=== PATIENT | male | born 1960 | race Caucasian/White ===

== ENCOUNTER 2020-01-30 13:56 | Inpatient (IN) ==
[2020-01-30] MEDS ORDERED: ONDANSETRON 4 MG/2 ML VIAL IV PRN (14:11)
[2020-01-30 15:59] LABS: Basophils # 0.1 10*3/uL (0.0-0.2); Basophils % 0.3 % (0.0-0.8); Immature Granulocytes % 5.5 %; Immature Granulocytes Absolute 1.29 #; Lymphocytes # 0.7 10*3/uL (1.4-4.0); Mean Corpuscular HGB Conc 33.3 GM/DL (32-36); Mean Corpuscular Volume 97.3 FL (87-102); Monocytes % 5.7 % (1.7-12.7); Neutrophils % 85.5 % (38.7-73.9); Platelet Count 263 T/CUMM (130-400); Red Blood Count 4.01 MC/CUMM (3.8-5.5); Red Cell Distribution Width 13.4 % (9.3-17.3); White Blood Count 23.4 T/CUMM (4-12)
[2020-01-30 16:23] LABS: Albumin 2.5 G/DL (3.4-5.0); Bilirubin,Total 0.4 MG/DL (0.2-1.0); Calcium 9.2 MG/DL (8.5-10.1); Osmolality,Calculated 277.2 MOS/KG (273-304); Total Protein 7.1 G/DL (6.4-8.3)
[2020-01-30 16:24] LABS: Band Neutrophils 2 % (0-10); Hypochromasia Slight; Lymphocytes 6 % (20-55); Platelet Estimate Adequate; Segmented Neutrophils 89 % (50-85); Total Cells Counted 100
[2020-01-30] MEDS ORDERED: SODIUM CHLORIDE 0.9% 1,000 ML IV ONE (17:09)
[2020-01-30] MEDS ORDERED: VANCOMYCIN INJ 1,500 MG in SODIUM CHLORIDE 0.9% 500 ML IV ONE (17:30)
[2020-01-30] MEDS ORDERED: VANCOMYCIN INJ 1,750 MG in SODIUM CHLORIDE 0.9% 500 ML IV SCH (18:00)
[2020-01-30] MEDS: SODIUM CHLORIDE 0.9% 1,000 ML IV SCH (18:24)
[2020-01-30] MEDS: ACETAMINOPHEN 325 MG TABLET PO PRN (18:24)
[2020-01-30] MEDS ORDERED: DEXTROSE 50% 25 GM/50 ML VIAL IV PRN (18:30)
[2020-01-30] MEDS ORDERED: GLUCAGON 1 MG VIAL IM PRN (18:30)
[2020-01-30] MEDS: METOPROLOL SUCCINATE XL 50 MG TABLET PO SCH (21:51)
[2020-01-30] MEDS: PIPERACILLIN/TAZOBACTAM 3,375 MG in SODIUM CHLORIDE 0.9% 100 ML IV SCH (21:51)
[2020-01-31] MEDS: ACETAMINOPHEN 325 MG TABLET PO PRN ×2 (00:35→16:35)
[2020-01-31] MEDS: SODIUM CHLORIDE 0.9% 1,000 ML IV SCH ×3 (03:00→17:27)
[2020-01-31 03:50] LABS: Bilirubin,Urine Negative (Negative); Blood, Urine Negative (Negative); Glucose,Urine (UA) Negative (Negative); Ketones,Urine Negative (Negative); Nitrite,Urine Negative (Negative); Protein,Urine Negative; RBC,Urine 1 /HPF (0-4); Urine Appearance CLEAR (Clear); Urine Color Yellow (Yellow); Urine Specific Gravity 1.028 (1.001-1.035); Urine Urobilinogen < 2.0 EU/DL (0.2-1.0); WBC,Urine <1 /HPF (0-6)
[2020-01-31 05:52] LABS: Basophils # 0.1 10*3/uL (0.0-0.2); Basophils % 0.3 % (0.0-0.8); Eosinophils % 0.1 % (0.00-10.9); Hematocrit 34.6 VOL% (42.0-52.0); Hemoglobin 11.6 GM/DL (14.0-18.0); Immature Granulocytes % 1.5 %; Immature Granulocytes Absolute 0.28 #; Lymphocytes # 1.2 10*3/uL (1.4-4.0); Lymphocytes % 6.2 % (21.2-54.2); Mean Corpuscular HGB Conc 33.5 GM/DL (32-36); Mean Corpuscular Volume 95.8 FL (87-102); Mean Platelet Volume 9.1 FL (9.6-12.0); Monocytes % 5.8 % (1.7-12.7); Neutrophils % 86.1 % (38.7-73.9); Platelet Count 248 T/CUMM (130-400); Red Blood Count 3.61 MC/CUMM (3.8-5.5); Red Cell Distribution Width 13.5 % (9.3-17.3)
[2020-01-31 06:15] LABS: Albumin 2.1 G/DL (3.4-5.0); Bilirubin,Total 1.4 MG/DL (0.2-1.0); Calcium 8.2 MG/DL (8.5-10.1); Osmolality,Calculated 274.1 MOS/KG (273-304); Total Protein 6.1 G/DL (6.4-8.3)
[2020-01-31 06:23] LABS: Band Neutrophils 2 % (0-10); Lymphocytes 10 % (20-55); Platelet Estimate Adequate; Segmented Neutrophils 84 % (50-85); Total Cells Counted 100
[2020-01-31] MEDS: PIPERACILLIN/TAZOBACTAM 3,375 MG in SODIUM CHLORIDE 0.9% 100 ML IV SCH ×3 (06:40→21:11)
[2020-01-31] MEDS ORDERED: BUPIVACAINE MPF 0.25% 30 ML VIAL ONE (06:41)
[2020-01-31] MEDS ORDERED: MIDAZOLAM 2 MG/2 ML VIAL ONE (06:42)
[2020-01-31] MEDS ORDERED: LIDOCAINE 1%/EPI INJ 20 ML VIAL ONE (06:42)
[2020-01-31] MEDS ORDERED: fentaNYL 100 MCG/2 ML VIAL ONE (06:42)
[2020-01-31] MEDS ORDERED: propofoL 200 MG/20 ML VIAL IV ONE (06:45)
[2020-01-31] MEDS ORDERED: ROCURONIUM 50 MG/5 ML VIAL IV ONE (06:45)
[2020-01-31] MEDS ORDERED: LIDOCAINE 2% 5 ML VIAL ONE (06:45)
[2020-01-31] MEDS ORDERED: ONDANSETRON 4 MG/2 ML VIAL ONE (06:48)
[2020-01-31] MEDS ORDERED: PHENYLEPHRINE 1 MG/10 ML SYRINGE IV ONE (07:38)
[2020-01-31] MEDS ORDERED: SUGAMMADEX 200 MG/2 ML VIAL IV ONE (07:44)
[2020-01-31] MEDS ORDERED: DESFLURANE 1 UNIT/15 MINUTE INH ONE (08:36)
[2020-01-31] MEDS: AMIODARONE 200 MG TABLET PO SCH (08:38)
[2020-01-31] MEDS: PANTOPRAZOLE 40 MG VIAL IV SCH (08:38)
[2020-01-31] MEDS: METOPROLOL SUCCINATE XL 50 MG TABLET PO SCH ×2 (09:01→21:11)
[2020-01-31] MEDS: VANCOMYCIN INJ 1,750 MG in SODIUM CHLORIDE 0.9% 500 ML IV SCH (12:16)
[2020-01-31] MEDS: DIGOXIN 0.125 MG TABLET PO SCH (12:18)
[2020-01-31] MEDS: HYDROmorphone 2 MG/1 ML VIAL IV PRN (15:49)
[2020-02-01] MEDS: VANCOMYCIN INJ 1,750 MG in SODIUM CHLORIDE 0.9% 500 ML IV SCH ×2 (01:24→12:39)
[2020-02-01] MEDS: SODIUM CHLORIDE 0.9% 1,000 ML IV SCH ×4 (01:27→23:48)
[2020-02-01] MEDS: PIPERACILLIN/TAZOBACTAM 3,375 MG in SODIUM CHLORIDE 0.9% 100 ML IV SCH ×3 (06:00→22:25)
[2020-02-01 06:25] LABS: Basophils % 0.2 % (0.0-0.8); Eosinophils # 0.1 10*3/uL (0.0-0.87); Eosinophils % 0.8 % (0.00-10.9); Hematocrit 31.9 VOL% (42.0-52.0); Hemoglobin 10.6 GM/DL (14.0-18.0); Immature Granulocytes % 1.6 %; Immature Granulocytes Absolute 0.29 #; Lymphocytes # 1.4 10*3/uL (1.4-4.0); Lymphocytes % 7.9 % (21.2-54.2); Mean Corpuscular HGB Conc 33.2 GM/DL (32-36); Mean Corpuscular Volume 96.4 FL (87-102); Mean Platelet Volume 8.8 FL (9.6-12.0); Neutrophils % 85.5 % (38.7-73.9); Platelet Count 247 T/CUMM (130-400); Red Blood Count 3.31 MC/CUMM (3.8-5.5); Red Cell Distribution Width 13.8 % (9.3-17.3); White Blood Count 18.3 T/CUMM (4-12)
[2020-02-01 06:51] LABS: Calcium 8.2 MG/DL (8.5-10.1); Osmolality,Calculated 271.1 MOS/KG (273-304)
[2020-02-01 06:57] LABS: Band Neutrophils 1 % (0-10); Hypochromasia 1+; Lymphocytes 9 % (20-55); Microcytosis 1+; Platelet Estimate Adequate; Segmented Neutrophils 82 % (50-85); Total Cells Counted 100
[2020-02-01] MEDS ORDERED: LIDOCAINE 1%/EPI INJ 20 ML VIAL ONE (08:29)
[2020-02-01] MEDS ORDERED: BUPIVACAINE MPF 0.25% 30 ML VIAL ONE (08:29)
[2020-02-01] MEDS ORDERED: propofoL 200 MG/20 ML VIAL IV ONE (08:48)
[2020-02-01] MEDS ORDERED: fentaNYL 100 MCG/2 ML VIAL ONE (08:48)
[2020-02-01] MEDS ORDERED: MIDAZOLAM 2 MG/2 ML VIAL ONE (08:48)
[2020-02-01] MEDS ORDERED: LIDOCAINE 2% 5 ML VIAL ONE (08:48)
[2020-02-01] MEDS: METOPROLOL SUCCINATE XL 50 MG TABLET PO SCH ×2 (09:44→22:24)
[2020-02-01] MEDS: AMIODARONE 200 MG TABLET PO SCH (09:44)
[2020-02-01] MEDS: PANTOPRAZOLE 40 MG VIAL IV SCH (09:44)
[2020-02-01] MEDS: HYDROmorphone 2 MG/1 ML VIAL IV PRN (12:40)
[2020-02-01] MEDS: DIGOXIN 0.125 MG TABLET PO SCH (13:20)
[2020-02-02] MEDS: VANCOMYCIN INJ 1,750 MG in SODIUM CHLORIDE 0.9% 500 ML IV SCH ×2 (00:33→11:38)
[2020-02-02] MEDS: SODIUM CHLORIDE 0.9% 1,000 ML IV SCH ×3 (05:36→20:49)
[2020-02-02] MEDS: PIPERACILLIN/TAZOBACTAM 3,375 MG in SODIUM CHLORIDE 0.9% 100 ML IV SCH ×3 (06:10→22:17)
[2020-02-02] MEDS: AMIODARONE 200 MG TABLET PO SCH (08:47)
[2020-02-02] MEDS: METOPROLOL SUCCINATE XL 50 MG TABLET PO SCH ×2 (08:47→21:31)
[2020-02-02] MEDS: PANTOPRAZOLE 40 MG VIAL IV SCH (08:48)
[2020-02-02] MEDS: HYDROmorphone 2 MG/1 ML VIAL IV PRN ×3 (08:56→21:40)
[2020-02-02] MEDS: SODIUM HYPOCHLORITE 0.25% IRRIG 473 ML BOTTLE TOP SCH (09:45)
[2020-02-02] MEDS: DIGOXIN 0.125 MG TABLET PO SCH (13:36)
[2020-02-03] MEDS: SODIUM CHLORIDE 0.9% 1,000 ML IV SCH ×4 (00:50→19:42)
[2020-02-03] MEDS: VANCOMYCIN INJ 1,750 MG in SODIUM CHLORIDE 0.9% 500 ML IV SCH ×2 (00:50→11:26)
[2020-02-03 05:53] LABS: Basophils # 0.1 10*3/uL (0.0-0.2); Basophils % 0.4 % (0.0-0.8); Eosinophils # 0.4 10*3/uL (0.0-0.87); Eosinophils % 3.1 % (0.00-10.9); Hematocrit 31.1 VOL% (42.0-52.0); Hemoglobin 10.2 GM/DL (14.0-18.0); Immature Granulocytes % 4.2 %; Immature Granulocytes Absolute 0.49 #; Lymphocytes # 1.5 10*3/uL (1.4-4.0); Lymphocytes % 12.7 % (21.2-54.2); Mean Corpuscular HGB Conc 32.8 GM/DL (32-36); Mean Corpuscular Volume 96.9 FL (87-102); Mean Platelet Volume 8.6 FL (9.6-12.0); Monocytes % 5.3 % (1.7-12.7); Neutrophils % 74.3 % (38.7-73.9); Platelet Count 275 T/CUMM (130-400); Red Blood Count 3.21 MC/CUMM (3.8-5.5); Red Cell Distribution Width 13.4 % (9.3-17.3); White Blood Count 11.7 T/CUMM (4-12)
[2020-02-03 05:58] LABS: Calcium 8.2 MG/DL (8.5-10.1); Osmolality,Calculated 275.5 MOS/KG (273-304)
[2020-02-03] MEDS: PIPERACILLIN/TAZOBACTAM 3,375 MG in SODIUM CHLORIDE 0.9% 100 ML IV SCH ×3 (06:31→21:28)
[2020-02-03] MEDS: FUROSEMIDE 20 MG TABLET PO SCH (08:58)
[2020-02-03] MEDS: AMIODARONE 200 MG TABLET PO SCH (08:58)
[2020-02-03] MEDS: ATORVASTATIN 20 MG TABLET PO SCH (08:58)
[2020-02-03] MEDS: METOPROLOL SUCCINATE XL 50 MG TABLET PO SCH ×2 (08:58→21:27)
[2020-02-03] MEDS: PANTOPRAZOLE 40 MG VIAL IV SCH (08:59)
[2020-02-03] MEDS: SODIUM HYPOCHLORITE 0.25% IRRIG 473 ML BOTTLE TOP SCH (08:59)
[2020-02-03] MEDS ORDERED: BUPIVACAINE MPF 0.25% 30 ML VIAL ONE (10:46)
[2020-02-03] MEDS ORDERED: LIDOCAINE 1%/EPI INJ 20 ML VIAL ONE (10:46)
[2020-02-03] MEDS: DIGOXIN 0.125 MG TABLET PO SCH (13:25)
[2020-02-03] MEDS ORDERED: propofoL 200 MG/20 ML VIAL IV ONE (15:07)
[2020-02-03] MEDS ORDERED: LIDOCAINE 2% 5 ML VIAL ONE (15:07)
[2020-02-03] MEDS ORDERED: MIDAZOLAM 2 MG/2 ML VIAL ONE (15:07)
[2020-02-03] MEDS ORDERED: fentaNYL 100 MCG/2 ML VIAL ONE (15:07)
[2020-02-03] MEDS ORDERED: PHENYLEPHRINE 10 MG/1 ML VIAL IV ONE (16:31)
[2020-02-03] MEDS ORDERED: ONDANSETRON 4 MG/2 ML VIAL ONE (18:10)
[2020-02-03] MEDS: HYDROmorphone 2 MG/1 ML VIAL IV PRN (19:53)
[2020-02-04] MEDS: SODIUM CHLORIDE 0.9% 1,000 ML IV SCH (01:01)
[2020-02-04] MEDS: VANCOMYCIN INJ 1,750 MG in SODIUM CHLORIDE 0.9% 500 ML IV SCH (01:35)
[2020-02-04] MEDS: PIPERACILLIN/TAZOBACTAM 3,375 MG in SODIUM CHLORIDE 0.9% 100 ML IV SCH ×3 (06:13→22:59)
[2020-02-04 07:17] LABS: Basophils % 0.3 % (0.0-0.8); Eosinophils # 0.3 10*3/uL (0.0-0.87); Eosinophils % 2.5 % (0.00-10.9); Hematocrit 31.9 VOL% (42.0-52.0); Hemoglobin 10.6 GM/DL (14.0-18.0); Immature Granulocytes % 2.9 %; Immature Granulocytes Absolute 0.35 #; Lymphocytes # 1.2 10*3/uL (1.4-4.0); Lymphocytes % 9.8 % (21.2-54.2); Mean Corpuscular HGB Conc 33.2 GM/DL (32-36); Mean Corpuscular Volume 96.7 FL (87-102); Mean Platelet Volume 8.3 FL (9.6-12.0); Monocytes % 4.6 % (1.7-12.7); Neutrophils % 79.9 % (38.7-73.9); Platelet Count 289 T/CUMM (130-400); Red Cell Distribution Width 13.3 % (9.3-17.3); White Blood Count 12.1 T/CUMM (4-12)
[2020-02-04 07:42] LABS: Calcium 8.4 MG/DL (8.5-10.1); Osmolality,Calculated 273.8 MOS/KG (273-304)
[2020-02-04] MEDS: METOPROLOL SUCCINATE XL 50 MG TABLET PO SCH ×2 (10:28→20:18)
[2020-02-04] MEDS: PANTOPRAZOLE 40 MG VIAL IV SCH (10:28)
[2020-02-04] MEDS: ATORVASTATIN 20 MG TABLET PO SCH (10:28)
[2020-02-04] MEDS: FUROSEMIDE 20 MG TABLET PO SCH (10:28)
[2020-02-04] MEDS: AMIODARONE 200 MG TABLET PO SCH (10:28)
[2020-02-04] MEDS: lisinopriL 10 MG TABLET PO SCH (10:30)
[2020-02-04] MEDS: APIXABAN 5 MG TABLET PO SCH ×2 (10:31→20:18)
[2020-02-04] MEDS: metroNIDAZOLE INJ 500 MG in PREMIX 1 EACH IV SCH ×2 (10:31→20:17)
[2020-02-04] MEDS: SODIUM HYPOCHLORITE 0.25% IRRIG 473 ML BOTTLE TOP SCH (10:44)
[2020-02-04] MEDS: DIGOXIN 0.125 MG TABLET PO SCH (13:31)
[2020-02-04] MEDS: HYDROmorphone 2 MG/1 ML VIAL IV PRN (20:17)
[2020-02-05] MEDS: metroNIDAZOLE INJ 500 MG in PREMIX 1 EACH IV SCH ×3 (04:44→21:06)
[2020-02-05] MEDS: PIPERACILLIN/TAZOBACTAM 3,375 MG in SODIUM CHLORIDE 0.9% 100 ML IV SCH ×2 (07:11→14:31)
[2020-02-05] MEDS: FUROSEMIDE 20 MG TABLET PO SCH (08:58)
[2020-02-05] MEDS: PANTOPRAZOLE 40 MG VIAL IV SCH (08:59)
[2020-02-05] MEDS: METOPROLOL SUCCINATE XL 50 MG TABLET PO SCH ×2 (08:59→21:05)
[2020-02-05] MEDS: lisinopriL 10 MG TABLET PO SCH (08:59)
[2020-02-05] MEDS: AMIODARONE 200 MG TABLET PO SCH (08:59)
[2020-02-05] MEDS: ATORVASTATIN 20 MG TABLET PO SCH (08:59)
[2020-02-05] MEDS: APIXABAN 5 MG TABLET PO SCH ×2 (08:59→21:05)
[2020-02-05] MEDS: SODIUM HYPOCHLORITE 0.25% IRRIG 473 ML BOTTLE TOP SCH (09:00)
[2020-02-05] MEDS: SODIUM CHLORIDE 0.9% 1,000 ML IV SCH (14:28)
[2020-02-05] MEDS: DIGOXIN 0.125 MG TABLET PO SCH (14:31)
[2020-02-06] MEDS: PIPERACILLIN/TAZOBACTAM 3,375 MG in SODIUM CHLORIDE 0.9% 100 ML IV SCH ×2 (01:04→09:10)
[2020-02-06] MEDS: metroNIDAZOLE INJ 500 MG in PREMIX 1 EACH IV SCH (06:36)
[2020-02-06] MEDS: HYDROmorphone 2 MG/1 ML VIAL IV PRN (09:06)
[2020-02-06] MEDS: lisinopriL 10 MG TABLET PO SCH (09:10)
[2020-02-06] MEDS: PANTOPRAZOLE 40 MG VIAL IV SCH (09:10)
[2020-02-06] MEDS: METOPROLOL SUCCINATE XL 50 MG TABLET PO SCH (09:11)
[2020-02-06] MEDS: AMIODARONE 200 MG TABLET PO SCH (09:11)
[2020-02-06] MEDS: FUROSEMIDE 20 MG TABLET PO SCH (09:11)
[2020-02-06] MEDS: ATORVASTATIN 20 MG TABLET PO SCH (09:11)
[2020-02-06] MEDS: APIXABAN 5 MG TABLET PO SCH (09:11)
[2020-02-06] MEDS: SODIUM HYPOCHLORITE 0.25% IRRIG 473 ML BOTTLE TOP SCH (09:11)
[2020-02-06 12:16] VITALS: BP 155/90
== END 2020-02-06 12:33 | disposition home health service (06) | DRG 854 ==
LOC: N.3E 14:27
PROVIDERS: ADMIT Family Medicine; ATTEND Family Medicine